=== PATIENT | male | born 1990 | race African-American/Black ===

== ENCOUNTER 2018-05-16 12:11 | Emergency (ER) | payer MEDICAID ==
[~2018-05-16] VITALS: Ht 172.7 cm; Wt 74.8 kg
[2018-05-16 12:36] VITALS: BP 155/82
== END 2018-05-16 12:45 | disposition home or self-care (01) ==
LOC: ER 12:11
DX: S61.411A Laceration without foreign body of right hand, initial encounter (principal); F12.10 Cannabis abuse, uncomplicated; Z88.0 Allergy status to penicillin; W25.XXXA Contact with sharp glass, initial encounter; Y93.G1 Activity, food preparation and clean up; Y92.090 Kitchen in other non-institutional residence as the place of occurrence of the external cause; Y99.8 Other external cause status

== ENCOUNTER 2018-08-04 09:34 | Emergency (ER) | payer MEDICAID ==
[~2018-08-04] VITALS: Ht 182.9 cm; Wt 77.1 kg
[2018-08-04 09:41] VITALS: BP 130/90
== END 2018-08-04 10:51 | disposition left against medical advice (07) ==
LOC: EDBD 09:34 → ER 09:34
DX: F41.9 Anxiety disorder, unspecified (principal); Z53.21 Procedure and treatment not carried out due to patient leaving prior to being seen by health care provider

== ENCOUNTER 2018-10-21 22:27 | Emergency (ER) | payer MEDICAID ==
[~2018-10-21] VITALS: Ht 175.3 cm; Wt 83.9 kg
[2018-10-21 22:40] VITALS: BP 131/81
== END 2018-10-22 02:52 | disposition left against medical advice (07) ==
LOC: ER 22:27
DX: K08.89 Other specified disorders of teeth and supporting structures (principal); Z53.21 Procedure and treatment not carried out due to patient leaving prior to being seen by health care provider

== ENCOUNTER 2019-01-12 02:42 | Emergency (ER) | payer MEDICAID ==
[2019-01-12 06:46] VITALS: BP 130/83
[2019-01-12] MEDS ORDERED: BENZOCAINE (DENTAL) 20 % SPRAY 60ML MT ONE (07:15)
== END 2019-01-12 07:50 | disposition home or self-care (01) ==
LOC: ER 02:46
DX: K04.7 Periapical abscess without sinus (principal); F12.10 Cannabis abuse, uncomplicated; Z88.0 Allergy status to penicillin

== ENCOUNTER 2020-06-15 11:02 | Emergency (ER) | payer MEDICAID ==
[~2020-06-15] VITALS: Ht 172.7 cm; Wt 80.7 kg
[2020-06-15 11:37] VITALS: BP 135/89
[2020-06-15] MEDS ORDERED: CLINDAMYCIN 600MG IV 50 ML IV ONE (14:00)
[2020-06-15] MEDS ORDERED: ACETAMINOPHEN/CODEINE#3 (300/30mg) TAB PO ONE (14:00)
[2020-06-15] MEDS ORDERED: cefTRIAXone 1GM/50ML D5W 50 ML IV ONE (14:30)
== END 2020-06-15 15:21 | disposition home or self-care (01) ==
LOC: ER 11:02
DX: L03.311 Cellulitis of abdominal wall (principal); F12.10 Cannabis abuse, uncomplicated; Z88.0 Allergy status to penicillin
CPT/HCPCS: 74176; 81002; 96365; 99284; J3490

== ENCOUNTER 2022-12-07 14:24 | Inpatient (IN) | payer MEDICAID, OTHER ==
[~2022-12-07] VITALS: Ht 180.3 cm; Wt 83.9 kg
[2022-12-07] MEDS ORDERED: LORazepam 2MG/ML-1ML VIAL IV ONE (15:15)
[2022-12-07] MEDS ORDERED: ACETAMINOPHEN 500 MG TAB PO ONE (15:15)
[2022-12-07] MEDS ORDERED: HYDROmorphone HCL 2 MG/ML VL/or syr IM ONE (15:15)
[2022-12-07] MEDS ORDERED: PIPERACILLIN-TAZOB 3.375GM 100 ML IV ONE (15:15)
[2022-12-07] MEDS ORDERED: VANCOMYCIN PER PHARMACY 0 MG IV SCH (15:15)
[2022-12-07] MEDS ORDERED: SODIUM CHLORIDE 0.9% 1,000 ML IV ONE (15:15)
[2022-12-07 15:43] LABS: Basophils # (auto) 0.1 10 ^3/uL (0-0.2); Basophils % (auto) 0.5 % (0.0-2.0); Eosinophils # (auto) 0.2 10 ^3/uL (0-0.8); Eosinophils % (auto) 1.4 % (0.0-7.0); Hematocrit 36.3 % (41.0-53.0); Hemoglobin 11.7 g/dL (13.5-17.5); Lymphocytes # (auto) 0.5 10 ^3/uL (0.4-5.4); Lymphocytes % (auto) 4.7 % (10.0-50.0); Mean Corpuscular Hemoglobin 27.5 pg (28.0-32.0); Mean Corpuscular Hgb Conc. 32.3 g/dL (32.0-36.0); Mean Corpuscular Volume 85.1 fL (80.0-100.0); Monocytes # (auto) 0.6 10 ^3/uL (0-1.3); Monocytes % (auto) 4.7 % (0.0-12.0); Neutrophils # (auto) 10.5 10 ^3/uL (1.6-8.6); Neutrophils % (auto) 88.7 % (37.0-80.0); Red Blood Cells 4.26 10^6/uL (4.5-5.90); White Blood Cell 11.8 10^3/uL (4.4-10.8)
[2022-12-07 16:04] LABS: Alanine Aminotransferase 9 U/L (7-40); Albumin 4.2 g/dL (3.2-4.8); Alkaline Phosphatase 80 U/L (46-116); Anion Gap 4 (5-15); Aspartate Aminotransferase 12 U/L (13-40); BUN/Creatinine Ratio 9.8 (10.0-20.0); Bilirubin, Total 0.4 mg/dL (0.2-1.0); Blood Urea Nitrogen 9 mg/dL (9-23); Calcium 8.9 mg/dL (8.7-10.4); Carbon Dioxide 29 mmol/L (20-30); Chloride 104 mmol/L (98-107); Glucose 61 mg/dL (74-106); Potassium 3.2 mmol/L (3.5-5.1); Sodium 137 mmol/L (136-145); Total Protein 8.2 g/dL (5.7-8.2)
[2022-12-07 16:20] VITALS: PULSE 104; RESP 22; O2SAT 99
[2022-12-07] MEDS ORDERED: VANCOMYCIN 1GM/250ML 250 ML IV ONE (17:00)
[2022-12-07 19:26] LABS: Urine WBC None Seen /hpf (0 - 3)
[2022-12-07 19:37] LABS: Urine Bacteria NONE SEEN /hpf (None Seen); Urine Blood Negative /uL (Negative); Urine Clarity Clear (Clear); Urine Color Colorless (Yellow); Urine Protein, UAD Negative (Negative); Urine Specific Gravity 1.016 (1.001-1.035); Urine Urobilinogen Normal (Negative)
[2022-12-07 19:50] LABS: Amphetamine Screen, Urine Pos (NEGATIVE)
[2022-12-07 19:51] LABS: Barbiturate Scree,Urine Neg (NEGATIVE); Benzodiazephine Screen, Urine Neg (NEGATIVE); Cannabinoid Screen, Urine Pos (NEGATIVE); Cocaine Screen, Urine Neg (NEGATIVE); Opiate Scree,Urine Neg (NEGATIVE); Phencyclidine Screen, Urine Neg (NEGATIVE)
[2022-12-07] MEDS: POTASSIUM CHL 20MEQ/100ML 100 ML IV SCH (21:34)
[2022-12-08 00:30] VITALS: PULSE 97; RESP 20; O2SAT 97
[2022-12-08 05:00] VITALS: PULSE 91; RESP 20; O2SAT 98
[2022-12-08] MEDS: VANCOMYCIN 1GM/250ML 250 ML IV SCH ×2 (05:57→16:32)
[2022-12-08] MEDS: POTASSIUM CHL 20MEQ/100ML 100 ML IV SCH (05:57)
[2022-12-08] MEDS ORDERED: POTASSIUM CHL 20MEQ/100ML 100 ML IV SCH (06:00)
[2022-12-08 08:01] VITALS: PULSE 89; RESP 17; O2SAT 90
[2022-12-08] MEDS ORDERED: VANCOMYCIN PER PHARMACY 0 MG IV SCH (11:30)
[2022-12-08] MEDS ORDERED: MORPHINE SULFATE INJ 2 MG/ml SYRG IV PRN (11:30)
[2022-12-08] MEDS ORDERED: ONDANSETRON HCL 4 MG/2 ML VIAL IV PRN (11:30)
[2022-12-08] MEDS ORDERED: DOCUSATE SOD 100 MG CAP PO PRN (11:30)
[2022-12-08] MEDS: SODIUM CHLORIDE 0.9% 1,000 ML IV SCH ×2 (13:19→22:22)
[2022-12-08] MEDS: MUPIROCIN 2% OINT 15gm or 22gm TOP SCH (22:22)
[2022-12-09] VITALS (9 sets, daily range): BP systolic 121–134; BP diastolic 75–87; PULSE 79–94; RESP 13–22; TEMP 97.7–98.7; O2SAT 97–100
[2022-12-09] MEDS: VANCOMYCIN 1GM/250ML 250 ML IV SCH ×3 (03:55→21:01)
[2022-12-09 04:07] LABS: Basos 0 % (Not Estab.); Eos 1 % (Not Estab.); Eos (Absolute) 0.1 x10E3/uL (0.0-0.4); Hematocrit 32.5 % (37.5-51.0); Hemoglobin 10.7 g/dL (13.0-17.7); Immature Granulocytes 0 % (Not Estab.); Lymphs 8 % (Not Estab.); Lymphs (Absolute) 0.6 x10E3/uL (0.7-3.1); MCHC 32.9 g/dL (31.5-35.7); MCV 85 fL (79-97); Monocytes 6 % (Not Estab.); Monocytes (Absolute) 0.4 x10E3/uL (0.1-0.9); Neutrophils 85 % (Not Estab.); Neutrophils (Absolute) 6.1 x10E3/uL (1.4-7.0); Platelets 282 x10E3/uL (150-450); RBC 3.82 x10E6/uL (4.14-5.80); RDW 12.3 % (11.6-15.4); WBC 7.2 x10E3/uL (3.4-10.8)
[2022-12-09] MEDS: SODIUM CHLORIDE 0.9% 1,000 ML IV SCH ×3 (04:10→20:50)
[2022-12-09 07:06] LABS: RPR Non Reactive (Non Reactive)
[2022-12-09 09:06] LABS: % CD 4 Pos Lymph 10.6 % (30.8-58.5); % CD 8 Pos Lymph 49.8 % (12.0-35.5); Absolute CD 4 Helper 64 /uL (359-1519); CD4/CD8 Ratio 0.21 (0.92-3.72)
[2022-12-09] MEDS: MUPIROCIN 2% OINT 15gm or 22gm TOP SCH ×2 (10:03→21:01)
[2022-12-09] MEDS: levoFLOXacin 500MG 100 ML IV SCH (10:03)
[2022-12-09] MEDS ORDERED: NORPTMEDS CO (10:48)
[2022-12-10 05:00] VITALS: BP 126/91; PULSE 79; RESP 22; TEMP 97.9; O2SAT 100
[2022-12-10] MEDS: VANCOMYCIN 1GM/250ML 250 ML IV SCH ×3 (05:07→22:11)
[2022-12-10] MEDS: SODIUM CHLORIDE 0.9% 1,000 ML IV SCH ×3 (05:07→22:11)
[2022-12-10 07:24] LABS: Basophils # (auto) 0 10 ^3/uL (0-0.2); Basophils % (auto) 0.5 % (0.0-2.0); Eosinophils # (auto) 0.2 10 ^3/uL (0-0.8); Hematocrit 32.7 % (41.0-53.0); Hemoglobin 10.6 g/dL (13.5-17.5); Lymphocytes # (auto) 0.6 10 ^3/uL (0.4-5.4); Lymphocytes % (auto) 10.4 % (10.0-50.0); Mean Corpuscular Hemoglobin 27.7 pg (28.0-32.0); Mean Corpuscular Hgb Conc. 32.4 g/dL (32.0-36.0); Mean Corpuscular Volume 85.3 fL (80.0-100.0); Monocytes # (auto) 0.5 10 ^3/uL (0-1.3); Monocytes % (auto) 8.3 % (0.0-12.0); Neutrophils # (auto) 4.5 10 ^3/uL (1.6-8.6); Neutrophils % (auto) 76.8 % (37.0-80.0); Nucleated Red Blood Cells % 0.2 %; Red Blood Cells 3.83 10^6/uL (4.5-5.90); Red Cell Distribution Width 13.8 % (11.8-14.3); White Blood Cell 5.9 10^3/uL (4.4-10.8)
[2022-12-10 07:43] LABS: Chloride 108 mmol/L (98-107); Potassium 3.9 mmol/L (3.5-5.1); Sodium 141 mmol/L (136-145)
[2022-12-10 07:44] LABS: Anion Gap 5 (5-15); Calcium 8.3 mg/dL (8.5-10.1); Carbon Dioxide 28 mmol/L (20-30)
[2022-12-10 07:49] LABS: BUN/Creatinine Ratio 7.4 (10.0-20.0); Blood Urea Nitrogen 5 mg/dL (9-23); Glucose 90 mg/dL (74-106)
[2022-12-10 08:15] VITALS: BP 132/86; PULSE 78; PULSE 80; RESP 20; TEMP 98.7
[2022-12-10 08:35] VITALS: BP 132/86; PULSE 78; RESP 20; TEMP 98.7; O2SAT 98
[2022-12-10] MEDS: levoFLOXacin 500MG 100 ML IV SCH (11:37)
[2022-12-10] MEDS: MUPIROCIN 2% OINT 15gm or 22gm TOP SCH ×3 (11:37→22:15)
[2022-12-10 16:20] VITALS: BP 121/81; PULSE 83; RESP 18; TEMP 97.1; O2SAT 96
[2022-12-10 17:04] LABS: Erythrocyte Sedimentation Rate 16 mm/hr (0-20)
[2022-12-10 20:00] VITALS: BP 136/88; PULSE 86; PULSE 90; RESP 20; RESP 22; TEMP 98.5; O2SAT 99
[2022-12-10 22:00] VITALS: BP 136/88; PULSE 90; RESP 22; TEMP 98.5; O2SAT 99
[2022-12-11 05:00] VITALS: BP 132/82; PULSE 92; RESP 22; TEMP 98.1; O2SAT 100
[2022-12-11] MEDS: SODIUM CHLORIDE 0.9% 1,000 ML IV SCH ×3 (05:48→22:50)
[2022-12-11] MEDS: VANCOMYCIN 1GM/250ML 250 ML IV SCH (05:48)
[2022-12-11 08:15] VITALS: BP 129/91; PULSE 82; PULSE 88; RESP 18; TEMP 98.1
[2022-12-11 08:20] VITALS: BP 129/91; PULSE 88; RESP 18; TEMP 98.1; O2SAT 97
[2022-12-11 10:48] LABS: Basophils # (auto) 0 10 ^3/uL (0-0.2); Basophils % (auto) 0.6 % (0.0-2.0); Eosinophils # (auto) 0.2 10 ^3/uL (0-0.8); Hematocrit 33.7 % (41.0-53.0); Hemoglobin 10.8 g/dL (13.5-17.5); Lymphocytes # (auto) 0.5 10 ^3/uL (0.4-5.4); Lymphocytes % (auto) 9.1 % (10.0-50.0); Mean Corpuscular Hemoglobin 27.8 pg (28.0-32.0); Mean Corpuscular Hgb Conc. 32.2 g/dL (32.0-36.0); Mean Corpuscular Volume 86.3 fL (80.0-100.0); Monocytes # (auto) 0.4 10 ^3/uL (0-1.3); Monocytes % (auto) 7.9 % (0.0-12.0); Neutrophils # (auto) 4.1 10 ^3/uL (1.6-8.6); Neutrophils % (auto) 78.4 % (37.0-80.0); Nucleated Red Blood Cells % 0.2 %; Red Cell Distribution Width 14.3 % (11.8-14.3); White Blood Cell 5.2 10^3/uL (4.4-10.8)
[2022-12-11] MEDS: levoFLOXacin 500MG 100 ML IV SCH (10:55)
[2022-12-11] MEDS: MUPIROCIN 2% OINT 15gm or 22gm TOP SCH ×2 (10:56→22:00)
[2022-12-11 11:41] LABS: Erythrocyte Sedimentation Rate 16 mm/hr (0-20)
[2022-12-11 12:20] VITALS: BP 116/73; PULSE 114; RESP 20; TEMP 98; O2SAT 97
[2022-12-11 16:20] VITALS: BP 130/85; PULSE 102; RESP 18; TEMP 98.4; O2SAT 97
[2022-12-11 20:00] VITALS: PULSE 92
[2022-12-12] MEDS: SODIUM CHLORIDE 0.9% 1,000 ML IV SCH ×3 (07:10→22:48)
[2022-12-12 08:00] VITALS: PULSE 98
[2022-12-12 09:00] VITALS: BP 131/94; PULSE 98; RESP 21; TEMP 97.5; O2SAT 99
[2022-12-12] MEDS: levoFLOXacin 500MG 100 ML IV SCH (10:46)
[2022-12-12] MEDS: MUPIROCIN 2% OINT 15gm or 22gm TOP SCH ×2 (10:46→22:00)
[2022-12-12 12:38] VITALS: BP 138/90; PULSE 109; RESP 21; TEMP 98.2; O2SAT 98
[2022-12-12 16:31] VITALS: BP 133/84; PULSE 126; RESP 21; TEMP 97.5; O2SAT 98
[2022-12-12] MEDS ORDERED: SULFAMETHOX W/TRIMETH(800/160MG) DS TAB PO ONE (17:45)
[2022-12-12 20:00] VITALS: PULSE 91; RESP 18; O2SAT 98
[2022-12-12 22:00] VITALS: BP 145/88; PULSE 98; RESP 18; TEMP 98.9; O2SAT 98
[2022-12-12] MEDS ORDERED: DOXYCYCLINE 100 MG TAB/CAP PO SCH (22:00)
[2022-12-12] MEDS: SULFAMETHOX W/TRIMETH(800/160MG) DS TAB PO SCH (22:44)
[2022-12-12] MEDS: OLANZapine 5 MG TAB PO SCH (22:44)
[2022-12-13 08:00] VITALS: PULSE 83
[2022-12-13 09:10] VITALS: BP 132/85; PULSE 100; RESP 21; TEMP 98.2; O2SAT 100
[2022-12-13] MEDS: SULFAMETHOX W/TRIMETH(800/160MG) DS TAB PO SCH (09:17)
[2022-12-13] MEDS: OLANZapine 5 MG TAB PO SCH (09:17)
[2022-12-13] MEDS: SODIUM CHLORIDE 0.9% 1,000 ML IV SCH (09:27)
[2022-12-13] MEDS: MUPIROCIN 2% OINT 15gm or 22gm TOP SCH (10:42)
[2022-12-13] MEDS ORDERED: BACDST PO (12:34)
[2022-12-13] MEDS ORDERED: OLAN1TAB7 PO (12:34)
[2022-12-13 12:46] VITALS: BP 136/93; PULSE 116; RESP 21; TEMP 98; O2SAT 95
[2022-12-13 12:49] VITALS: BP 136/93; PULSE 116; RESP 21; TEMP 98; O2SAT 95
== END 2022-12-13 13:35 | disposition home or self-care (01) | DRG 383 ==
LOC: ER 14:24 → TELE 12-08 11:34 → TELE-WESTW 12-09 08:51
PROVIDERS: ADMIT Nurse Practitioner Family; ATTEND Internal Medicine Pulmonary Disease
DX: L03.012 Cellulitis of left finger (principal); G04.90 Encephalitis and encephalomyelitis, unspecified; G93.41 Metabolic encephalopathy; D63.8 Anemia in other chronic diseases classified elsewhere; R45.850 Homicidal ideations; S61.215A Laceration without foreign body of left ring finger without damage to nail, initial encounter; D72.829 Elevated white blood cell count, unspecified; R62.7 Adult failure to thrive; E87.6 Hypokalemia; F12.10 Cannabis abuse, uncomplicated; F15.10 Other stimulant abuse, uncomplicated; F39 Unspecified mood [affective] disorder; W18.39XA Other fall on same level, initial encounter; F20.9 Schizophrenia, unspecified; F31.9 Bipolar disorder, unspecified; Z88.0 Allergy status to penicillin; Z59.00 Homelessness unspecified; Z82.49 Family history of ischemic heart disease and other diseases of the circulatory system; Z83.3 Family history of diabetes mellitus; Y93.89 Activity, other specified; Y92.89 Other specified places as the place of occurrence of the external cause; Y99.8 Other external cause status; Z68.25 Body mass index [BMI] 25.0-25.9, adult
CPT/HCPCS: 36415; 73200; 73218; 80048; 80053; 80202; 80307; 81001; 82565; 83605; 84484; 85025; 85652; 86360; 86592; 87040; 87077; 87186; 87205; 93005; G0378; J1956; J2543; J3480

== ENCOUNTER 2023-01-11 17:01 | Emergency (ER) | payer OTHER ==
[~2023-01-11] VITALS: Ht 175.3 cm; Wt 85.5 kg
[~2023-01-11 17:01] MED LIST: BACDST PO; NORPTMEDS CO; OLAN1TAB7 PO
[2023-01-11] MEDS ORDERED: LORazepam 2MG/ML-1ML VIAL IM ONE (18:00)
[2023-01-11 18:19] LABS: Basophils # (auto) 0 10 ^3/uL (0-0.2); Basophils % (auto) 0.4 % (0.0-2.0); Eosinophils # (auto) 0.2 10 ^3/uL (0-0.8); Hematocrit 35.8 % (41.0-53.0); Hemoglobin 11.6 g/dL (13.5-17.5); Lymphocytes # (auto) 0.6 10 ^3/uL (0.4-5.4); Lymphocytes % (auto) 16.3 % (10.0-50.0); Mean Corpuscular Hemoglobin 29.5 pg (28.0-32.0); Mean Corpuscular Hgb Conc. 32.3 g/dL (32.0-36.0); Mean Corpuscular Volume 91.2 fL (80.0-100.0); Monocytes # (auto) 0.4 10 ^3/uL (0-1.3); Neutrophils # (auto) 2.5 10 ^3/uL (1.6-8.6); Neutrophils % (auto) 67.3 % (37.0-80.0); Nucleated Red Blood Cells % 0.3 %; Red Blood Cells 3.93 10^6/uL (4.5-5.90); Red Cell Distribution Width 18.3 % (11.8-14.3); White Blood Cell 3.8 10^3/uL (4.4-10.8)
[2023-01-11 18:37] LABS: Alanine Aminotransferase 21 U/L (7-40); Albumin 3.9 g/dL (3.2-4.8); Alkaline Phosphatase 86 U/L (46-116); Anion Gap 3 (5-15); Aspartate Aminotransferase 23 U/L (13-40); Bilirubin, Total 0.2 mg/dL (0.2-1.0); Blood Urea Nitrogen 10 mg/dL (9-23); Calcium 8.7 mg/dL (8.5-10.1); Carbon Dioxide 30 mmol/L (20-30); Chloride 113 mmol/L (98-107); Glucose 75 mg/dL (74-106); Potassium 3.8 mmol/L (3.5-5.1); Sodium 146 mmol/L (136-145); Total Protein 6.7 g/dL (5.7-8.2)
[2023-01-12 08:12] VITALS: BP 133/97; PULSE 97; RESP 17; TEMP 98.8; O2SAT 96
== END 2023-01-12 08:21 | disposition home or self-care (01) ==
LOC: ER 17:01
DX: F31.9 Bipolar disorder, unspecified (principal); F20.9 Schizophrenia, unspecified; R07.89 Other chest pain; Z79.899 Other long term (current) drug therapy; Z88.0 Allergy status to penicillin
CPT/HCPCS: 36415; 71045; 80053; 83605; 85025; 86360; 96372; 99284; J2060

== ENCOUNTER 2023-10-04 08:23 | Emergency (ER) | payer MEDICAID, OTHER ==
[~2023-10-04] VITALS: Ht 177.8 cm; Wt 59.6 kg
[2023-10-04 09:41] VITALS: PULSE 100; RESP 18; O2SAT 98
[2023-10-04 09:51] LABS: Basophils # (auto) 0.1 10 ^3/uL (0-0.2); Basophils % (auto) 1.2 % (0.0-2.0); Eosinophils # (auto) 0.1 10 ^3/uL (0-0.8); Eosinophils % (auto) 1.2 % (0.0-7.0); Hematocrit 34.6 % (41.0-53.0); Lymphocytes # (auto) 0.6 10 ^3/uL (0.4-5.4); Lymphocytes % (auto) 8.1 % (10.0-50.0); Mean Corpuscular Hemoglobin 27.3 pg (28.0-32.0); Mean Corpuscular Hgb Conc. 31.9 g/dL (32.0-36.0); Mean Corpuscular Volume 85.7 fL (80.0-100.0); Monocytes # (auto) 0.4 10 ^3/uL (0-1.3); Monocytes % (auto) 5.7 % (0.0-12.0); Neutrophils # (auto) 6.2 10 ^3/uL (1.6-8.6); Neutrophils % (auto) 83.8 % (37.0-80.0); Nucleated Red Blood Cells % 0.2 %; Platelet Count (auto) 295 10^3/uL (140-450); Red Blood Cells 4.04 10^6/uL (4.5-5.90); Red Cell Distribution Width 15.2 % (11.8-14.3); White Blood Cell 7.4 10^3/uL (4.4-10.8)
[2023-10-04 10:22] LABS: Alanine Aminotransferase 52 U/L (7-40); Albumin 3.7 g/dL (3.2-4.8); Alkaline Phosphatase 83 U/L (46-116); Anion Gap 4 (5-15); Aspartate Aminotransferase 65 U/L (13-40); BUN/Creatinine Ratio 10.1 (10.0-20.0); Bilirubin, Total 0.2 mg/dL (0.2-1.0); Blood Urea Nitrogen 8 mg/dL (9-23); Calcium 8.8 mg/dL (8.7-10.4); Carbon Dioxide 30 mmol/L (20-30); Chloride 106 mmol/L (98-107); Glucose 91 mg/dL (74-106); Potassium 2.9 mmol/L (3.5-5.1); Sodium 140 mmol/L (136-145); Total Protein 7.3 g/dL (5.7-8.2)
[2023-10-04 11:36] LABS: Blood Alcohol < 3.0 mg/dL (<10)
[2023-10-04 11:43] LABS: Urine Bacteria None Seen /hpf (None Seen)
[2023-10-04 11:55] LABS: Urine Blood Negative /uL (Negative); Urine Clarity Turbid (Clear); Urine Color Yellow (Yellow); Urine Hyaline Cast FEW /lpf (0 - 2); Urine Mucus FEW (None Seen); Urine Protein, UAD 1+ (Negative); Urine Specific Gravity 1.027 (1.001-1.035); Urine Urobilinogen Normal (Negative); Urine WBC 33 /hpf (0 - 3)
[2023-10-04 12:07] LABS: Amphetamine Screen, Urine Neg (NEGATIVE); Barbiturate Scree,Urine Neg (NEGATIVE); Benzodiazephine Screen, Urine Neg (NEGATIVE); Cannabinoid Screen, Urine Pos (NEGATIVE); Cocaine Screen, Urine Neg (NEGATIVE); Opiate Scree,Urine Neg (NEGATIVE); Phencyclidine Screen, Urine Neg (NEGATIVE)
[2023-10-04] MEDS: SODIUM CHLORIDE 0.9% 1,000 ML IV ONE (12:28)
[2023-10-04] MEDS: POTASSIUM CHL 20 Meq TABLET PO ONE (12:28)
[2023-10-04] MEDS: CLINDAMYCIN HCL 150 MG CAP PO ONE (23:34)
[2023-10-05 03:00] VITALS: PULSE 85; RESP 18; O2SAT 10
[2023-10-05 16:12] VITALS: PULSE 100; RESP 16; O2SAT 95
[2023-10-05 20:00] VITALS: PULSE 76; RESP 16; O2SAT 97
[2023-10-05] MEDS: OLANZapine 5 MG TAB PO SCH (22:12)
[2023-10-06 07:25] VITALS: RESP 20; O2SAT 95
[2023-10-06 19:40] VITALS: TEMP 98.2
[2023-10-06 20:00] VITALS: PULSE 74; RESP 16; O2SAT 97
[2023-10-07 02:00] VITALS: BP 118/64; PULSE 70; RESP 16; O2SAT 98
== END 2023-10-07 07:23 | disposition left against medical advice (07) ==
LOC: ER 08:27
DX: F31.9 Bipolar disorder, unspecified (principal); F20.9 Schizophrenia, unspecified; E87.6 Hypokalemia; D64.9 Anemia, unspecified; F15.90 Other stimulant use, unspecified, uncomplicated; Z00.8 Encounter for other general examination; Z89.022 Acquired absence of left finger(s); Z91.148 Patient's other noncompliance with medication regimen for other reason; Z79.899 Other long term (current) drug therapy; Z88.0 Allergy status to penicillin
CPT/HCPCS: 36415; 73130; 80053; 80307; 80320; 80329; 81001; 83605; 83735; 84484; 85025

== ENCOUNTER → 2023-10-07 | Emergency (ER) | payer OTHER | END | disposition left against medical advice (07) | LOC: ER 13:50 | DX: Z00.8 Encounter for other general examination (principal); Z53.21 Procedure and treatment not carried out due to patient leaving prior to being seen by health care provider ==

== ENCOUNTER 2023-11-14 19:03 | Emergency (ER) | payer OTHER ==
[~2023-11-14] VITALS: Ht 175.3 cm; Wt 59.1 kg
[2023-11-14 19:20] VITALS: BP 123/77; PULSE 109; RESP 18; O2SAT 100
[2023-11-14] MEDS ORDERED: KETAMINE 50mg/ML 1ml syringe IV ONE (20:30)
[2023-11-14] MEDS ORDERED: LORazepam 2MG/ML-1ML VIAL IV ONE (20:30)
== END 2023-11-14 21:30 | disposition short-term general hospital (02) ==
LOC: ER 19:03
DX: F20.9 Schizophrenia, unspecified (principal); F31.9 Bipolar disorder, unspecified; T21.06XA Burn of unspecified degree of male genital region, initial encounter; T20.00XA Burn of unspecified degree of head, face, and neck, unspecified site, initial encounter; Z79.899 Other long term (current) drug therapy; Z88.0 Allergy status to penicillin; X58.XXXA Exposure to other specified factors, initial encounter; Y93.89 Activity, other specified; Y92.89 Other specified places as the place of occurrence of the external cause; Y99.8 Other external cause status
CPT/HCPCS: 99291

== ENCOUNTER 2024-08-26 17:48 | Emergency (ER) | payer OTHER ==
[~2024-08-26] VITALS: Ht 172.7 cm; Wt 55.0 kg
[2024-08-26] MEDS ORDERED: SODIUM CHLORIDE 0.9% 1,000 ML IV ONE (18:30)
--- NOTE | 2024-08-26 18:30 | ED.PDOC ---
History of Present Illness HPI Comments 34 y.o male with PMHx of anemia, bipolar disorder, cellulitis, HIV, schizophrenia, and polysubstance abuse, presents with father for a chief complaint of generalized weakness associated with mouth sores. Father reports patient had routine lab work done showing elevated T cells at the [facility]. Father reports patient is back to living with him as he has been homeless in the past. Patient denies any chest pain, fever, chills or SOB. Patient admits to tobacco, alcohol, marijuana and methamphetamine use. Time Seen by MD: 18:21 Primary Care Provider: NONE Reviewed Notes: Nurses Notes, Medications, Allergies Allergies: Coded Allergies: Penicillins (Verified Allergy, Unknown, 08/04/18) Home Meds Active Scripts Olanzapine (OLANZAPINE) 5 Mg Tab, 5 MG PO BID for 30 Days, #60 TAB Prov:ASHA RIVAS MD 12/13/22 Sulfamethoxazole W/Trimethopri (Bactrim Ds Tablet) 1 Tab Tb, 1 TAB PO Q12HR, #14 TAB Prov:ASHA RIVAS MD 12/13/22 Reported Medications No Reported Medication (NO REPORTED MEDICATION) Ea, 0 CO DAILY, EA PATIENT HAS NO REPORTED MEDICATIONS 12/09/22 Information Source: Patient, Relative (Father) Mode of Arrival: Ambulatory Severity: Moderate Timing: Days Duration: Since onset Past Medical History PAST MEDICAL HISTORY: Anemia, HIV, Schizophrenia Family History Family History: Unknown Social History Smoker: Cigarettes Alcohol: Rarely Drugs: Cocaine, Marijuana, Methamphetamine Lives In: Home Constitutional: reports: weakness; denies: chills, diaphoresis, fatigue, fever, malaise, sweats, others EENTM: denies: blurred vision, double vision, ear bleeding, ear discharge, ear drainage, ear pain, ear ringing, eye pain, eye redness, hearing loss, mouth pain, mouth swelling, nasal discharge, nose bleeding, nose congestion, nose pain, photophobia, tearing, throat pain, throat swelling, voice changes, others Respiratory: denies: cough, hemoptysis, orthopnea, SOB at rest, shortness of breath, SOB with excertion, stridor, wheezing, others Cardiovascular: denies: chest pain, dizzy spells, diaphoresis, Dyspnea on exertion, edema, irregular heart beat, left arm pain, lightheadedness, palpitations, PND, syncope, others Gastrointestinal: denies: abdomen distended, abdominal pain, blood streaked bowels, constipated, diarrhea, dysphagia, difficulty swallowing, hematemesis, melena, nausea, poor appetite, poor fluid intake, rectal bleeding, rectal pain, vomiting, others Genitourinary: denies: burning, dysuria, flank pain, frequency, hematuria, incontinence, penile discharge, penile sore, pain, testicle pain, testicle swelling, urgency, others Neurological: denies: dizziness, fainting, headache, left sided numbness, left sided weakness, numbness, paresthesia, pre-existing deficit, right sided numbness, right sided weakness, seizure, speech problems, tingling, tremors, weakness, others Musculoskeletal: denies: back pain, gout, joint pain, joint swelling, muscle pain, muscle stiffness, neck pain, others Integumetry: denies: bruises, change in color, change in hair/nails, dryness, laceration, lesions, lumps, rash, wounds, others Allergic/Immunocompromised: denies: Difficulty Healing, Frequent Infections, Hives, Itching, others Hematologic/Lymphatic: denies: anemia, blood clots, easy bleeding, easy bruising, swollen glands, others Endocrine: denies: excessive hunger, excessive sweating, excessive thirst, excessive urination, flushing, intolerance to cold, intolerance to heat, unexplained weight gain, unexplained weight loss, others Psychiatric: denies: anxiety, bipolar disorder, depression, hopeless, panic disorder, schizophrenia, sleepless, suicidal, others All Other Systems: Reviewed and Negative Physical Exam General Appearance: Moderate Distress, Thin HEENT: Pale Conjuntivae (L), Pale Conjuntivae (R), Pharynx Normal, TMs Normal Neck: Full Range of Motion, Non-Tender, Normal, Normal Inspection Respiratory: Chest Non-Tender, Lungs Clear, No Accessory Muscle Use, No Respiratory Distress, Normal Breath Sounds Cardiovascular: No Edema, No JVD, No Murmur, No Gallop, Normal Peripheral Pulses, Regular Rate/Rhythm Breast Exam: Deferred Gastrointestinal: No Organomegaly, Non Tender, No Pulsatile Mass, Normal Bowel Sounds, Soft Genitalia: Deferred Pelvic: Deferred Rectal: Deferred Extremities: No calf tenderness, Normal capillary refill, No pedal edema, Other (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 Was a procedure done?: No Differential Dx Considerations may include: Dehydration, Electrolyte imbalance X-Ray, Labs, Meds, VS Vital Signs Date Time Temp Pulse Resp B/P (MAP) Pulse Ox O2 Delivery O2 Flow Rate FiO2 08/26/24 18:39 98.2 137 22 108/74 (85) 94 98.2 08/26/24 18:37 138 Lab Test 08/26/24 19:05 Range/Units White Blood Count 6.3 4.4-10.8 10^3/uL Red Blood Count 2.85 L 4.5-5.90 10^6/uL Hemoglobin 7.6 L 13.5-17.5 g/dL Hematocrit 23.8 L 41.0-53.0 % Mean Corpuscular Volume 83.4 80.0-100.0 fL Mean Corpuscular Hemoglobin 26.5 L 28.0-32.0 pg Mean Corpuscular Hemoglobin Concent 31.8 L 32.0-36.0 g/dL Red Cell Distribution Width 15.3 H 11.8-14.3 % Platelet Count 348 140-450 10^3/uL Mean Platelet Volume 7.8 6.9-10.8 fL Neutrophils (%) (Auto) 85.2 H 37.0-80.0 % Lymphocytes (%) (Auto) 5.8 L 10.0-50.0 % Monocytes (%) (Auto) 7.6 0.0-12.0 % Eosinophils (%) (Auto) 1.0 0.0-7.0 % Basophils (%) (Auto) 0.4 0.0-2.0 % Neutrophils # (Auto) 5.4 1.6-8.6 10 ^3/uL Lymphocytes # (Auto) 0.4 0.4-5.4 10 ^3/uL Monocytes # (Auto) 0.5 0-1.3 10 ^3/uL Eosinophils # (Auto) 0.1 0-0.8 10 ^3/uL Basophils # (Auto) 0 0-0.2 10 ^3/uL Nucleated Red Blood Cells 0.1 % Sodium Level 137 136-145 mmol/L Potassium Level 3.0 L 3.5-5.1 mmol/L Chloride Level 102 98-107 mmol/L Carbon Dioxide Level 28 20-31 mmol/L Anion Gap 7 5-15 Blood Urea Nitrogen 9 9-23 mg/dL Creatinine 0.76 0.700-1.30 mg/dL Glomerular Filtration Rate Calc 122 >90 mL/min BUN/Creatinine Ratio 11.8 10.0-20.0 Serum Glucose 92 74-106 mg/dL Lactic Acid Level 1.7 0.4-2.0 mmol/L Calcium Level 9.1 8.7-10.4 mg/dL The patient's CBC shows a significant anemia with a hemoglobin of 7.6 hematocrit 23.8 The platelets are within normal limits The chemistry panel shows hypokalemia at 3.0 IV Hep-Lock was established Blood cultures x2 were drawn The lactic acid level one seven The chest x-ray shows: IMPRESSION: 1. Bilateral perihilar infiltrates. No significant change in cardiac size compared to 01/11/2023. At this age pneumonia is more likely than congestive failure. Based on the findings, the patient is being started on vancomycin and Levaquin The patient is being admitted at this time Images Reviewed?: Images reviewed and evaluated by me Time of 1ST Reevaluation: 18:30 Reevaluation 1ST: Unchanged Patient Education/Counseling: Diagnosis, Treatment, Prognosis Family Education/Counseling: Diagnosis, Treatment, Prognosis SEPSIS Sepsis Screen Physician Orders Urinalysis (08/26/24 18:26) Heplock Iv (08/26/24 18:26) Drug Screen (08/26/24 18:26) Chest Two Views Routine (08/26/24 18:29) Blood Culture (08/26/24 18:32) Electrocardigram (08/26/24 18:41) Potassium Chl 20meq/100ml (08/26/24 20:30) Vancomycin 1gm/200ml Pm (08/26/24 20:30) Levofloxacin 500mg (Levaquin 500mg/ 100m (08/26/24 20:30) Vital Signs Date Time Temp Pulse Resp B/P (MAP) Pulse Ox O2 Delivery O2 Flow Rate FiO2 08/26/24 18:39 98.2 137 22 108/74 (85) 94 98.2 7/7/25 18:37 138 Laboratory Tests Test 08/26/24 19:05 Lactic Acid Level 1.7 mmol/L (0.4-2.0) White Blood Count 6.3 10^3/uL (4.4-10.8) Departure 1 Departure Time of Disposition: 20:30 Impression: Primary Impression: HIV (human immunodeficiency virus infection) Qualified Codes: Z21 - Asymptomatic human immunodeficiency virus [hiv] infection status Additional Impressions: History of medication noncompliance Generalized weakness Bilateral pneumonia Qualified Codes: J18.9 - Pneumonia, unspecified organism Disposition: ADMITTED INPATIENT Admit to: Tele Condition: Fair Critical Care Note Critical Care Time?: Yes (45 min-critical care time only) Stability Stability form required: Yes Unstable for transfer: Telemetry monitoring (Telemetry monitoring required), ED Physician Assesment (Clinical assesment) I personally scribed for ROSE KWON MD ([email or web address]) on 08/26/24 at 18:30. Electronically submitted by Erika Chowdhury ([facility]). ROSE WKON MD Aug 26, 2024 18:30
[2024-08-26 18:39] VITALS: BP 108/74; PULSE 137; RESP 22; TEMP 98.2; O2SAT 94
--- NOTE | 2024-08-26 19:25 | DVH ---
XY CHEST TWO VIEWS ROUTINE CLINICAL HISTORY: weakness COMPARISON: None TECHNIQUE: Frontal and lateral view of the chest was obtained FINDINGS: Lines and Tubes: None Lungs: Bilateral perihilar infiltrates extending into the upper lower lobes left worse than right. Pleura: No effusion. No pneumothorax. Cardiomediastinal contours: Unremarkable Bones: No acute osseous abnormality. IMPRESSION: 1. Bilateral perihilar infiltrates. No significant change in cardiac size compared to 01/11/2023. At this age pneumonia is more likely than congestive failure.
[2024-08-26 19:30] LABS: Hematocrit 23.8 % (41.0-53.0); Hemoglobin 7.6 g/dL (13.5-17.5); Mean Corpuscular Hemoglobin 26.5 pg (28.0-32.0); Mean Corpuscular Volume 83.4 fL (80.0-100.0); Nucleated Red Blood Cells % 0.1 %
[2024-08-26 19:35] LABS: Anion Gap 7 (5-15); Carbon Dioxide 28 mmol/L (20-31); Chloride 102 mmol/L (98-107); Sodium 137 mmol/L (136-145)
[2024-08-26 19:36] LABS: Calcium 9.1 mg/dL (8.7-10.4); Potassium 3.0 mmol/L (3.5-5.1)
[2024-08-26 19:40] LABS: Glucose 92 mg/dL (74-106)
[2024-08-26 19:41] LABS: BUN/Creatinine Ratio 11.8 (10.0-20.0)
[2024-08-26 19:43] LABS: Blood Urea Nitrogen 9 mg/dL (9-23)
[2024-08-26] MEDS ORDERED: VANCOMYCIN 1GM/200ML PM 200 ML IV ONE (20:30)
[2024-08-26] MEDS ORDERED: POTASSIUM CHL 20MEQ/100ML 100 ML IV ONE (20:30)
[2024-08-26] MEDS ORDERED: POTASSIUM CHL 20 Meq TABLET PO ONE (20:30)
--- NOTE | 2024-08-27 07:54 | ECG ---
[facility] Test Date: 2024-08-26 Test Time: 18:37:19 Pat Name: ROSALVA SKAGGS Department: ER Room: Gender: M Supervisor Waterproofing: MS : 1990 Requested By: ROSE KWON Order Number: [id number] Reading MD: Dariusz Potter Measurements Intervals [place] Rate: 138 P: 88 ND: 145 QRS: 80 QRSD: 84 T: -31 QT: 270 QTc: 409 Interpretive Statements Sinus tachycardia Borderline T abnormalities, diffuse leads Artifact in lead(s) I,II,III,aVR,aVL and baseline wander in lead(s) II,III,aVR,aVL,aVF,V1,V2,V3,V4,V5,V6 Electronically Signed On 08-29-2024 18:58:40 PDT by Dariusz Potter Please click the below link to view image of tracing.
== END 2024-08-27 00:30 | disposition left against medical advice (07) ==
LOC: ER 17:48
DX: J18.9 Pneumonia, unspecified organism (principal); R53.1 Weakness; F17.210 Nicotine dependence, cigarettes, uncomplicated; F10.90 Alcohol use, unspecified, uncomplicated; F12.90 Cannabis use, unspecified, uncomplicated; F20.9 Schizophrenia, unspecified; F19.90 Other psychoactive substance use, unspecified, uncomplicated; Z86.2 Personal history of diseases of the blood and blood-forming organs and certain disorders involving the immune mechanism; Z21 Asymptomatic human immunodeficiency virus [HIV] infection status; Z88.0 Allergy status to penicillin; Z79.899 Other long term (current) drug therapy; Y90.9 Presence of alcohol in blood, level not specified
CPT/HCPCS: 36415; 71046; 80048; 83605; 85025; 87040; 93005; 99291